=== PATIENT | female | born 1955 | race Caucasian/White ===

== ENCOUNTER 2017-02-18 20:35 | Emergency (ER) | payer OTHER ==
[~2017-02-18] VITALS: Ht 165.1 cm; Wt 97.3 kg
[2017-02-18 20:36] VITALS: BP 167/82
== END 2017-02-18 21:19 | disposition home or self-care (01) ==
LOC: ED 21:13
DX: K08.89 Other specified disorders of teeth and supporting structures (principal)
CPT/HCPCS: 99283